=== PATIENT | male | born 1955 | race Caucasian/White ===

== ENCOUNTER → 2024-07-15 11:32 | Outpatient (CLI) | payer MEDICARE, OTHER, SELFPAY ==
--- NOTE | 2024-07-15 11:35 | DI.CT.S_ITS ---
PROCEDURE: CT CHEST ABD PEL W CON INDICATIONS: Adenocarcinoma of head of pancreas TECHNIQUE: After the administration of intravenous contrast, 5 mm thick sections acquired from the lung apices to the symphysis. 5 mm coronal and sagittal reformats were performed, with additional 7 mm MIP reformats through the lungs. For radiation dose reduction, the following was used: automated exposure control, adjustment of mA and/or kV according to patient size. COMPARISON: [facility], CT, CT CHEST ABDOMEN PELVIS WITH CONTRAST, 05/04/2024, 11:08. FINDINGS: Image quality: Diagnostic Lungs and pleura: No suspicious pulmonary nodules. Small right Bochdalek's hernia. No pleural effusions. No dense airspace disease. Mediastinum, heart, and esophagus: A right port catheter is seen terminating in the SVC. Nonspecific mild wall thickening of the gastroesophageal junction. No pathologic lymphadenopathy by size criteria. Overall normal heart size Chest wall and thyroid: Unremarkable Liver: No suspicious focal lesion Gallbladder and biliary system: Increased biliary ductal dilation measuring about 1.2 cm in the hilum, previously 0.9 cm. Intrahepatic dilation is also slightly increased. The gallbladder is distended. Biliary stent is not seen. Pancreas: Pancreatic body and tail atrophy with ductal dilation. Pancreatic head lesion measures about 1.6 x 1.3 cm, grossly similar. There is thickening at the ampulla. Persistent desmoplastic reaction surrounds the SMA. The lesion encases the GDA and abuts the common hepatic artery. 180? of contact at the portal confluence is present. Spleen: Nonenlarged Adrenals: No discrete nodules Kidneys: No solid mass or hydronephrosis. Vessels and lymph nodes: No abdominal aortic aneurysm. No enlarged lymph nodes by size criteria. Bowel and peritoneum: There is narrowing at the duodenum secondary to the mass with desmoplastic reaction around the ampulla. Increased fecal loading is present. Nonspecific wall thickening seen throughout parts of the colon, including the area of the sigmoid suture lines, splenic flexure, and rectum. No small bowel obstruction. No drainable abscess or ascites. Body wall: Unremarkable Pelvis: Bladder is unremarkable. Heterogeneous prostate enhancement, not well assessed on this study. Bones: Degenerative changes. Ill-defined sclerotic lesion at L2 again seen. IMPRESSION: Pancreatic head mass again seen, grossly similar in size compared to prior, however biliary ductal dilation has increased. Stent is not seen. Vascular involvement as described above. There is also thickening of the duodenal ampulla adjacent to the mass, with mild duodenal narrowing. No definite suspicious liver lesion. Segmental areas of colorectal wall thickening, possibly colitis. This could also represent artifact of under distention. Attention on follow-up versus further evaluation with colonoscopy. Sigmoid suture lines are present. Ill-defined sclerotic lesion at L2 again seen Other findings above. Dictated by: Jim Dooley M.D. on 07/15/2024 at 15:04 Approved by: Jim Dooley M.D. on 07/15/2024 at 15:16
== END ==
PROVIDERS: Referring Provider Nurse Practitioner; Visit Provider Nurse Practitioner
DX: C25.0 Malignant neoplasm of head of pancreas (principal); C18.7 Malignant neoplasm of sigmoid colon; K44.9 Diaphragmatic hernia without obstruction or gangrene
CPT/HCPCS: 71260; 74177; Q9967